=== PATIENT | male | born 1955 | race Caucasian/White ===

== ENCOUNTER 2023-07-20 10:18 | Emergency (ER) | payer OTHER ==
[2023-07-20 10:25] VITALS: BP 140/90; PULSE 62; RESP 18; TEMP 98; BMI 26.6
[2023-07-20] MEDS ORDERED: LIDOCAINE 4% PATCH TP ONE (12:59)
[2023-07-20] MEDS ORDERED: ACETAMINOPHEN 325 MG TABLET (FP) ONE (12:59)
[2023-07-20] MEDS ORDERED: METHOCARBAMOL 500 MG TABLET ONE (13:00)
[2023-07-20] MEDS: ACETAMINOPHEN 500 MG TABLET (FP) PO ONE (13:02)
[2023-07-20] MEDS: METHOCARBAMOL 750 MG TABLET PO ONE (13:03)
[2023-07-20] MEDS: LIDOCAINE 5% TOPICAL PATCH TP ONE (13:03)
[2023-07-20] MEDS ORDERED: LIDOCAINE PATCH REMOVAL MC ONE (22:00)
== END 2023-07-20 13:31 | disposition home or self-care (01) ==
LOC: JERFT 10:18
DX: M54.50 Low back pain, unspecified (principal); M54.2 Cervicalgia; S39.012A Strain of muscle, fascia and tendon of lower back, initial encounter; V43.52XA Car driver injured in collision with other type car in traffic accident, initial encounter; Y92.410 Unspecified street and highway as the place of occurrence of the external cause
CPT/HCPCS: 99283-25